=== PATIENT | male | born 1990 | race Caucasian/White ===

== ENCOUNTER 2017-10-26 18:20 | Emergency (ER) | payer OTHER ==
[~2017-10-26] VITALS: Ht 172.7 cm; Wt 80.0 kg
[~2017-10-26 18:20] MED LIST: IBUP400T20 PO; METH500T3 PO; XANA1TAB6 PO
[2017-10-26 18:40] VITALS: BP 122/72; PULSE 70; RESP 16; TEMP 98.6; O2SAT 98
[2017-10-26] MEDS ORDERED: SODIUM CHLORIDE 0.9% FLUSH 10 ML FLUSH IVF PRN (19:30)
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
[2017-10-26 20:23] LABS: AUTOMATED NEUTROPHIL # 8.3 TH/MM3 (1.8-7.7); BASOPHIL # 0.1 TH/MM3 (0-0.2); BASOPHIL % 0.6 % (0.0-2.0); EOSINOPHIL # 0.1 TH/MM3 (0-0.4); EOSINOPHIL % 0.7 % (0.0-4.0); HEMATOCRIT 44.9 % (39.0-51.0); HEMOGLOBIN 15.6 GM/DL (13.0-17.0); LYMPH % 14.6 % (9.0-44.0); LYMPHOCYTE # 1.6 TH/MM3 (1.0-4.8); MEAN CELL VOLUME 94.7 FL (80.0-100.0); MEAN CORPUSCULAR HEMOGLOBIN 32.9 PG (27.0-34.0); MEAN CORPUSCULAR HGB CONC 34.8 % (32.0-36.0); MEAN PLATELET VOLUME 8.7 FL (7.0-11.0); MONO % 8.1 % (0.0-8.0); MONOCYTE # 0.9 TH/MM3 (0-0.9); PLATELET COUNT 214 TH/MM3 (150-450); RED BLOOD COUNT 4.74 MIL/MM3 (4.50-5.90); RED CELL DISTRIBUTION WIDTH 13.2 % (11.6-17.2); WHITE BLOOD COUNT 10.9 TH/MM3 (4.0-11.0)
--- NOTE | 2017-10-26 20:26 | RADRPT ---
EXAM DATE/TIME: 10/26/2017 20:17 [facility] COMPARISON: No previous studies available for comparison. INDICATIONS : Seizure today RADIATION DOSE: 39.95 CTDIvol (mGy) MEDICAL HISTORY : Seizures. SURGICAL HISTORY : laminectomy ENCOUNTER: Initial ACUITY: 1 day PAIN SCALE: 3/10 LOCATION: cranial TECHNIQUE: Multiple contiguous axial images were obtained of the head. Using automated exposure control and adj ustment of the mA and/or kV according to patient size, radiation dose was kept as low as reasonably a chievable to obtain optimal diagnostic quality images. DICOM format image data is available electro nically for review and comparison. FINDINGS: CEREBRUM: The ventricles are normal for age. No evidence of midline shift, mass lesion, hemorrhage or acute in farction. No extra-axial fluid collections are seen. POSTERIOR FOSSA: The cerebellum and brainstem are intact. The 4th ventricle is midline. The cerebellopontine angle i s unremarkable. EXTRACRANIAL: The visualized portion of the orbits is intact. SKULL: The calvaria is intact. No evidence of skull fracture. CONCLUSION: 1. No acute intracranial abnormalities. Shankar Alejo MD on October 26, 2017 at 20:23 Board Certified Radiologist. This report was verified electronically.
[2017-10-26 20:39] LABS: ALBUMIN 3.7 GM/DL (3.4-5.0); AST (GOT) 27 U/L (15-37); BICARBONATE 22.2 MEQ/L (21.0-32.0); BLOOD UREA NITROGEN 14 MG/DL (7-18); CALCIUM 8.7 MG/DL (8.5-10.1); CHLORIDE 106 MEQ/L (98-107); CREATININE 0.96 MG/DL (0.60-1.30); GLOMERULAR FILTRATION RATE 93 ML/MIN (>89); GLUCOSE,RANDOM 86 MG/DL (74-106); SODIUM (NA) 138 MEQ/L (136-145)
[2017-10-26 20:42] LABS: ALKALINE PHOSPHATASE 64 U/L (45-117); ALT (GPT) 18 U/L (12-78); TOTAL BILIRUBIN ADULT 0.7 MG/DL (0.2-1.0); TOTAL PROTEIN 7.1 GM/DL (6.4-8.2)
--- NOTE | 2017-10-26 22:14 | EKG ---
Date Performed: 10/26/2017 Time Performed: 19:42:06 PTAGE: 27 years EKG: SINUS BRADYCARDIA BORDERLINE ECG NO PREVIOUS TRACING DOCTOR: Nereida Adrian Interpretating Date/Time 10/26/2017 22:11:53
== END 2017-10-26 21:48 | disposition left against medical advice (07) ==
LOC: NEDAMB 18:20
DX: R56.9 Unspecified convulsions (principal); R94.31 Abnormal electrocardiogram [ECG] [EKG]; F90.9 Attention-deficit hyperactivity disorder, unspecified type; F41.9 Anxiety disorder, unspecified; G89.29 Other chronic pain; M54.9 Dorsalgia, unspecified
CPT/HCPCS: 70450; 80053; 80307; 85025; 93005

== ENCOUNTER 2018-03-29 06:11 | Observation (INO) | payer OTHER ==
[~2018-03-29] VITALS: Ht 175.3 cm; Wt 86.5 kg
[~2018-03-29 06:11] MED LIST changes: +ALPR1TAB3 PO; +CLOM25CA PO; +CYCL10TA PO; +DEXT10CA6 PO; -IBUP400T20 PO; +MELO15TA20 PO; -METH500T3 PO; +OXYC15TA PO; -XANA1TAB6 PO
[2018-03-29] MEDS ORDERED: SODIUM CHLORID 0.9% 500 ML IV PRN (06:30)
[2018-03-29] MEDS ORDERED: METOPROLOL TARTRATE 25 MG TAB PO PRN (06:30)
[2018-03-29] MEDS ORDERED: LACTATED RINGER'S 1000 ML IV PRN (06:30)
[2018-03-29] MEDS ORDERED: AMPICILLIN/SULBAC 3 GM/NS 100 ML IV PRN ×2 (06:30)
[2018-03-29] MEDS ORDERED: CHLORHEXIDINE GLUCONATE 2 % 1 PACK (2 CLOTHS) TOPICAL PRN (06:30)
[2018-03-29] MEDS ORDERED: POVIDONE IODINE 5% (ANTISEPSIS KIT) 4 APPLICATIONS EACH NARE PRN (06:30)
[2018-03-29] MEDS ORDERED: OXYMETAZOLINE HCL 0.05% 15 ML NASAL SPRAY ONE (07:10)
[2018-03-29] MEDS ORDERED: MICROFIBRILLAR COLLAGEN HEMOSTAT 1 GM PKT ONE (07:10)
[2018-03-29] MEDS ORDERED: LIDOCAINE 1%/EPINEPHrine 1:100,000 SOLN 20 ML VIAL ONE (07:10)
[2018-03-29] MEDS ORDERED: SUGAMMADEX SODIUM 200 MG/2 ML VIAL IV PUSH ONE (08:19)
[2018-03-29] MEDS ORDERED: DO NOT ADM ANY ANTICOAGULANT DRUGS PRN (08:39)
[2018-03-29] MEDS ORDERED: LORazepam 2 MG/ML VIAL ONE (08:40)
[2018-03-29] MEDS ORDERED: MIDAZOLAM HCL 2 MG/2 ML VIAL ONE (08:41)
[2018-03-29] MEDS: LORazepam 2 MG/ML VIAL IV PRN ×3 (08:43→23:06)
[2018-03-29] MEDS ORDERED: MORPHINE SULFATE 4 MG/ML INJ ONE ×2 (08:46→08:55)
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
[2018-03-29] MEDS ORDERED: ONDANSETRON ODT 4 MG TAB PO PRN (10:30)
[2018-03-29] MEDS: LACTATED RINGER'S 1000 ML INJ 1,000 ML IV SCH ×2 (10:30→20:30)
[2018-03-29] MEDS: ACETAMINOPHEN 325MG/HYDROcodone 7.5MG/15ML UDC PO PRN ×4 (10:56→23:06)
[2018-03-29 11:20] VITALS: O2SAT 96
[2018-03-29 13:24] VITALS: BP 115/70; PULSE 80; RESP 16; TEMP 97.5; O2SAT 96
[2018-03-29] MEDS: CYCLOBENZAPRINE HCL 10 MG TAB PO SCH ×2 (14:53→17:03)
[2018-03-29] MEDS: AMPICILLIN/SULBAC 3 GM/NS 100 ML IV SCH ×4 (14:54→21:13)
[2018-03-29 18:38] VITALS: BP 112/62; PULSE 80; RESP 16; TEMP 97.4; O2SAT 96
[2018-03-29 20:00] VITALS: BP 120/63; PULSE 71; RESP 22; TEMP 97.7; O2SAT 97
[2018-03-29 20:55] VITALS: O2SAT 98
[2018-03-30] VITALS: BP 119/68; PULSE 72; RESP 22; TEMP 97.8; O2SAT 95
[2018-03-30] MEDS: AMPICILLIN/SULBAC 3 GM/NS 100 ML IV SCH ×2 (02:00)
[2018-03-30] MEDS: ACETAMINOPHEN 325MG/HYDROcodone 7.5MG/15ML UDC PO PRN ×2 (02:39→06:23)
[2018-03-30 04:00] VITALS: BP 114/65; PULSE 59; RESP 20; TEMP 97.8; O2SAT 96
[2018-03-30] MEDS: LACTATED RINGER'S 1000 ML INJ 1,000 ML IV SCH (05:37)
[2018-03-30] MEDS: LORazepam 2 MG/ML VIAL IV PRN (06:22)
[2018-03-30 08:00] VITALS: O2SAT 98
[2018-03-30] MEDS ORDERED: CLOMIPRAMINE 25 MG PO SCH (09:00)
[2018-03-30] MEDS ORDERED: PROPOFOL 200 MG/20 ML AMP IV ONE (12:00)
[2018-03-30] MEDS ORDERED: ROCURONIUM INJ 50 MG/5 ML SYRINGE IV PUSH ONE (12:00)
[2018-03-30] MEDS ORDERED: DEXAMETHASONE SOD PHOS 4 MG/ML VIAL IV ONE (12:00)
[2018-03-30] MEDS ORDERED: LIDOCAINE HCL 1% PF 5 ML SYRINGE OTHER ONE (12:00)
[2018-03-30] MEDS ORDERED: ONDANSETRON HCL 4 MG/2 ML VIAL IV PUSH ONE (12:00)
[2018-03-30] MEDS ORDERED: PHENYLEPH/NS 1000 MCG/10 ML SYR IV ONE (12:00)
[2018-04-02] MEDS ORDERED: ALPRAZolam 1 MG TAB PO PRN (09:00)
[2018-04-05] MEDS ORDERED: DEXTROAMPHETAMINE SULFATE 5 MG TAB PO SCH (09:00)
[2018-04-12] MEDS ORDERED: MELOXICAM 15 MG TAB PO SCH (09:00)
== END 2018-03-30 08:26 | disposition home or self-care (01) ==
LOC: PHSDC 06:11 → HSDI 07:09 → PH3A 10:16
PROVIDERS: ADMIT Otolaryngology; ATTEND Otolaryngology
DX: J35.3 Hypertrophy of tonsils with hypertrophy of adenoids (principal); J35.01 Chronic tonsillitis; J98.8 Other specified respiratory disorders; J34.2 Deviated nasal septum; J34.3 Hypertrophy of nasal turbinates; G47.33 Obstructive sleep apnea (adult) (pediatric)
CPT/HCPCS: 00160; 00170; 21335; 30140; 42821; 88304; 96365; 96366; 96375; 96376; G0378; J0295; J2060; J2250; J2270; J3010; J7120; J1100; J2370; J2405